=== PATIENT | male | born 1955 | race Caucasian/White ===

== ENCOUNTER → 2023-12-18 12:10 | Outpatient (REF) | payer OTHER, SELFPAY | LOC: PAVMRI 12:10 | PROVIDERS: ATTENDING PHYSICIAN Family Medicine | DX: D18.03 Hemangioma of intra-abdominal structures (principal) | CPT/HCPCS: 74183; A9575 ==

== ENCOUNTER → 2024-02-07 12:53 | Outpatient (REF) | payer OTHER, SELFPAY | LOC: RAD 12:53 | PROVIDERS: ATTENDING PHYSICIAN Specialist; FAMILY PHYSICIAN Family Medicine | DX: I10 Essential (primary) hypertension (principal) | CPT/HCPCS: 93975 ==

== ENCOUNTER → 2024-02-28 08:18 | Outpatient (REF) | payer OTHER, SELFPAY | LOC: RAD 08:18 | PROVIDERS: ATTENDING PHYSICIAN Specialist; FAMILY PHYSICIAN Family Medicine | DX: Z96.653 Presence of artificial knee joint, bilateral (principal) | CPT/HCPCS: 78315; A9503 ==

== ENCOUNTER 2024-04-13 10:56 | Inpatient (IN) | payer OTHER, SELFPAY ==
--- NOTE | 2024-03-11 08:07 | CM ---
Addendum entered by Hayley Dejesus 04/01/24 10:28:
Spoke again with patient. He has not yet watched the online education or scheduled outpatient PT; he was encouraged to do both of these hai.
Original Note:
Patient is scheduled for a R TK Revision on 04/13/24. Spoke with patient prior to surgery via telephone. Patient had B TKR at in 2016. Reintroduced role of Orthopedic Navigator. Patient reports that he lives with his in a two story home.
There are five steps to enter and patient has a first floor set up. He currently functions independently and uses a cane. He also has a rolling walker, raised toilet seat, shower seat and hip kit. He reports a distant history of having had VN
services. PCP is Dr. Lexi Barillas.
Discussed orthopedic program and post surgical plans. Reviewed anticipated length of stay and that goal is for him to return home at discharge. Also reviewed outpatient PT. Patient is in agreement with tentative plan and will go directly to
outpatient PT at [facility]. He will have support from his when he goes home.
Patient will complete online education.
Plan: Orthopedic Navigator will remain available to assist with the care of patient and will reassess discharge needs after surgery.
[2024-03-23 09:49] VITALS: BMI 38.1
[2024-03-23 10:11] LABS: Mean Corp Hgb Conc. 33.3 g/dL (33.0-37.0); Mean Corpuscular Volume 92.9 fL (80.0-94.0); Mean Platelet Volume 10.2 fL (7.4-10.4); Platelet Count 202 10^3/uL (130-400); Red Blood Cell Count 4.52 10^6/uL (4.70-6.10); Red Cell Dist. Width 13.9 % (11.5-14.5); White Blood Cell Count 7.2 10^3/uL (4.8-10.8)
[2024-03-23 10:42] LABS: ALT (SGPT) 26 U/L (0-50); AST (SGOT) 39 U/L (17-59); Albumin 4.3 g/dl (3.5-5.0); Alkaline Phosphatase 87 U/L (38-126); Blood Urea Nitrogen 20 mg/dl (9-20); Calcium 9.7 mg/dl (8.4-10.2); Carbon Dioxide 24 mmol/L (22-30); Chloride 105 mmol/L (98-107); Estimated Creatinine Clearance 120 ml/min; Glucose 115 mg/dl (70-99); Potassium 4.4 mmol/L (3.5-5.1); Sodium 137 mmol/L (135-145); Total Bilirubin 0.6 mg/dl (0.2-1.3); eGFR > 60.00
[2024-03-23 11:09] LABS: Glycohemoglobin (HgbA1c) 5.8 % (4.0-5.6)
[2024-04-13] VITALS (9 sets, daily range): BP systolic 141–164; BP diastolic 62–93; BMI 38.1
[2024-04-13] MEDS: NORMOSOL-R 1000 IV ×2 (11:10→17:05)
[2024-04-13] MEDS: TYLENOL 650 MG PO ×4 (11:19→23:22)
[2024-04-13] MEDS: CELEBREX 200 MG PO (11:53)
--- NOTE | 2024-04-13 13:09 | W.DS.TRANS ---
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
-
Discharge Instructions:
Sleep Apnea Risk High
Discharge Diagnosis/Procedures R TKA Revision Dr. Hernadez 04/13/24
Activity With Walker
Driving Restrictions No driving
Bathing Restrictions OK to Shower
Other Services PT
Instructions:
Stand-Alone Forms:
Changes to Home Medications: Yes
Discharge Medications:
DC Medications w/original date entered in [employer]
Prilosec 1 tab PO DAILY 10/17/18
atenolol 50 mg tablet 50 mg PO DAILY 04/06/24
doxazosin 4 mg tablet 4 mg PO QPM 04/06/24
hydralazine 50 mg tablet 150 mg PO DAILY 04/06/24
losartan 100 mg tablet 100 mg PO DAILY 04/06/24
Saccharomyces boulardii 250 mg capsule (Florastor) 250 mg PO BID #1 cap 04/13/24
acetaminophen 500 mg tablet (Tylenol Extra Strength) 1,000 mg (2 x 500 mg) PO QID ##0 04/13/24
aspirin 325 mg tablet 325 mg PO DAILY blood clot prevention #1 tab 04/13/24
cefadroxil 500 mg capsule 500 mg PO BID infection prevention #14 caps 04/13/24
celecoxib 200 mg capsule 200 mg PO DAILY anti-inflammatory #14 caps 04/13/24
docusate sodium 100 mg capsule (Colace) 100 mg PO BID stool softner #1 cap 04/13/24
magnesium hydroxide 400 mg/5 mL oral suspension (Milk of Magnesia) 30 ml PO HS PRN Constipation #1 mL 04/13/24
mupirocin 2 % topical ointment topical DIRECTED 04/13/24
ondansetron 4 mg disintegrating tablet 4 mg PO Q6H PRN n/v #20 tabs 04/13/24
oxycodone 5 mg tablet 5 mg PO Q6H PRN 1 tab moderate pain, 2 tabs severe pain #30 tabs 04/13/24
sennosides 8.6 mg tablet (Senokot) 17.2 mg (2 x 8.6 mg) PO BID laxative #2 tabs 04/13/24
Home Medication Changes
cefadroxil 500 mg capsule 500 mg PO BID infection prevention #14 caps 04/13/24�
celecoxib 200 mg capsule 200 mg PO DAILY anti-inflammatory #14 caps 04/13/24�
mupirocin 2 % topical ointment topical DIRECTED 04/13/24�
ondansetron 4 mg disintegrating tablet 4 mg PO Q6H PRN n/v #20 tabs 04/13/24�
oxycodone 5 mg tablet 5 mg PO Q6H PRN 1 tab moderate pain, 2 tabs severe pain #30 tabs 04/13/24�
Pending Results: No
[2024-04-13] MEDS: NEURONTIN 300 MG PO ×2 (16:49→22:01)
[2024-04-13] MEDS: ROXICODONE 5 MG PO (17:01)
--- NOTE | 2024-04-13 18:00 | PTCARENOTE ---
received pt from pacu into room 2114. pt AAOx3. pt denies pain. denies nausea. Neurovascular check intact, sensation intact, + pulses. jonathan bandage to right knee. pt has not voided. active bowel sounds. lung sounds clear on room air. see worklist for
full nursing assessment. pt updated on plan of care.
[2024-04-13] MEDS: CARDURA 4 MG PO (18:22)
[2024-04-13] MEDS: ASPIRIN 325 MG PO (18:22)
[2024-04-13] MEDS: DILAUDID 0.5 MG IV (18:29)
[2024-04-13] MEDS: DECADRON 4 MG PO (19:57)
[2024-04-13] MEDS: SENOKOT 17.2 MG PO (19:57)
[2024-04-13] MEDS: TORADOL 15 MG IV (19:57)
[2024-04-13] MEDS: COLACE 100 MG PO (19:57)
[2024-04-13] MEDS: ROXICODONE 10 MG PO (22:01)
[2024-04-13] MEDS: ANCEF 5 IV (22:01)
[2024-04-13] MEDS: BACTROBAN 2% OINTMENT 1 APPLIC NASAL (22:01)
[2024-04-14] MEDS: ROXICODONE 10 MG PO ×3 (03:53→15:05)
[2024-04-14] MEDS: TYLENOL PO (06:05)
[2024-04-14] MEDS: FLUSH (NSS) 1 FLUSH IV (06:35)
[2024-04-14] MEDS: ANCEF 5 IV (06:39)
[2024-04-14 07:50] VITALS: BP 167/86
--- NOTE | 2024-04-14 08:19 | CM ---
Reviewed chart and held rounds with PT, OT and nursing. Patient admitted as planned for R TK Revision. Met with patient at bedside. Confirmed information previously obtained for assessment. Also discussed discharge plans. The plan is for patient to
return home at discharge. He will have support from his when he goes home. Patient will go directly to outpatient PT and will go to [facility]. He has an appointment scheduled for Saturday, 04/15.
Patient has all needed DME.
He will use [facility] pharmacy if additional discharge prescriptions are needed.
[2024-04-14] MEDS: COZAAR 25 MG PO (08:28)
[2024-04-14] MEDS: SENOKOT 17.2 MG PO (08:28)
[2024-04-14] MEDS: CELEBREX 200 MG PO (08:29)
[2024-04-14] MEDS: COLACE 100 MG PO (08:30)
[2024-04-14] MEDS: TYLENOL 650 MG PO ×3 (08:30→15:04)
[2024-04-14] MEDS: TENORMIN 25 MG PO ×2 (08:30→11:26)
[2024-04-14] MEDS: NEURONTIN 300 MG PO ×2 (08:30→15:04)
[2024-04-14] MEDS: ASPIRIN 325 MG PO (08:30)
[2024-04-14] MEDS: BACTROBAN 2% OINTMENT 1 APPLIC NASAL (08:31)
[2024-04-14] MEDS: PROTONIX 40 MG PO (08:31)
[2024-04-14] MEDS: CARDURA 4 MG PO (08:31)
[2024-04-14] MEDS: DECADRON 4 MG PO (08:31)
[2024-04-14] MEDS: TORADOL 15 MG IV (08:31)
[2024-04-14 09:55] VITALS: BP 139/74; PULSE 77; O2SAT 97
--- NOTE | 2024-04-14 10:30 | W.PN.ORTHO ---
Today's Communication / Plan
-
d/c
Assessment
.
Distal Motor Intact: Yes
Dressing:
Clean, dry and intact.
Assessment:
Incisional drainage-Tranexamic acid po x1-light pressure dressing-Hgb stable w/ no hemodynamic compromise
Plan
.
Surgery / Date: Mechanical failure-s/p R TKA Revision Dr. Hernadez
DVT Prophylaxis: Aspirin
Activity:
Out of bed.
PT/OT
Discharge Plan: Home w/ Outpatient PT
Subjective
.
.:
Patient resting comfortably.
Vital Signs and Labs
.
Vital Signs and Labs:
Lab Results
03/23/24 09:41
03/23/24 09:41
Temp Pulse Resp BP Pulse Ox
98.1 F 67 22 167/86 94
04/14/24 07:50 04/14/24 07:50 04/14/24 07:50 04/14/24 07:50 04/14/24 07:50
Non-invasive Hgb result: 15.6
Physical Exam
-
HEENT: No pallor, cyanosis, or jaundice. Throat clear.
NECK: Supple. No JVD.
RESPIRATORY: Lungs clear to auscultation.
CVS: S1, S2 normal. RRR.� No murmur, rub or gallop.
ABDOMEN: Soft, non-tender. No distension. BS+/normal.
EXTREMITIES: strength equal, no calf pain with palpation-proximal incisional bleeding
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 No focal deficits. neurosurgical nurse grossly intact
[2024-04-14 10:37] VITALS: BP 148/69
[2024-04-14] MEDS: CYKLOKAPRON 1300 MG PO (10:54)
[2024-04-14 15:20] VITALS: BP 152/76
--- NOTE | 2024-04-14 15:48 | PTCARENOTE ---
Verbal order from Gianna CORDOVA to place discharge order for now. Verbal order placed.
--- NOTE | 2024-04-14 16:25 | W.PN.UPDATE ---
Update Note
Progress Note Update
Patient was reported to have continued bleeding through his bandages. Bandages removed showing continuous slow bleeding with knee motion at the most proximal aspect in between michelle. There were 2 other locations identified 1 approximately 2
inches distal from the initially identified bleeding area and 1 more towards the distal incision. The area was initially cleaned with peroxide, followed by Betadine application for 2 minutes and subsequent alcohol. Overall sick michelle were then
applied and bleeding was controlled with knee motion. The area was cleaned again with Betadine and alcohol and allowed to dry and a new Aquacel dressing was placed. Pressure dressing was recommended L at the bedside and will monitor to see if
there is any evidence of continued bleeding.
[2024-04-14 16:37] VITALS: BP 152/76
== END 2024-04-14 16:30 | disposition home or self-care (01) | DRG 467 ==
LOC: 2 SOUTH 10:56
PROVIDERS: ADMITTING PHYSICIAN Specialist; FAMILY PHYSICIAN Family Medicine
PROC: 0SRC0J9 Replacement of Right Knee Joint with Synthetic Substitute, Cemented, Open Approach (ICD-10-PCS; 2024-04-13)
PROC: 0SPC0JZ Removal of Synthetic Substitute from Right Knee Joint, Open Approach (ICD-10-PCS; 2024-04-13)
DX: T84.032A Mechanical loosening of internal right knee prosthetic joint, initial encounter (principal); Z68.41 Body mass index [BMI] 40.0-44.9, adult; E66.01 Morbid (severe) obesity due to excess calories; Y79.8 Miscellaneous orthopedic devices associated with adverse incidents, not elsewhere classified; I10 Essential (primary) hypertension; E78.5 Hyperlipidemia, unspecified
CPT/HCPCS: 36415; 73560; 80053; 83036; 85027; 86850; 86900; 86901; 87070; 93005; 97110; 97116; 97163; 97166; 97530; C1713; C1762; C1776

== ENCOUNTER → 2024-11-06 13:01 | Outpatient (REF) | payer OTHER, SELFPAY | LOC: PAVMRI 13:01 | PROVIDERS: ATTENDING PHYSICIAN Family Medicine | DX: M54.16 Radiculopathy, lumbar region (principal) | CPT/HCPCS: 72148 ==

== ENCOUNTER → 2024-11-27 07:41 | Outpatient (REF) | payer OTHER, SELFPAY | LOC: RAD 07:41 | PROVIDERS: ATTENDING PHYSICIAN Family Medicine | DX: I71.40 Abdominal aortic aneurysm, without rupture, unspecified (principal) | CPT/HCPCS: 76770 ==

== ENCOUNTER → 2024-12-25 09:57 | Outpatient (REF) | payer OTHER, SELFPAY | LOC: RAD 09:57 | PROVIDERS: ATTENDING PHYSICIAN Neurological Surgery; FAMILY PHYSICIAN Family Medicine | DX: M54.2 Cervicalgia (principal); M79.604 Pain in right leg; M79.605 Pain in left leg | CPT/HCPCS: 72040; 72072; 72100 ==

== ENCOUNTER → 2024-12-28 10:36 | Outpatient (REF) | payer OTHER, SELFPAY | LOC: EMG 10:36 | PROVIDERS: ATTENDING PHYSICIAN Nurse Practitioner Family; FAMILY PHYSICIAN Family Medicine | DX: M79.604 Pain in right leg (principal); M79.605 Pain in left leg; R20.0 Anesthesia of skin | CPT/HCPCS: 95886; 95911 ==

== ENCOUNTER → 2025-05-04 11:23 | Outpatient (REF) | payer OTHER, SELFPAY | LOC: RAD 11:23 | PROVIDERS: ATTENDING PHYSICIAN Nurse Practitioner Family; FAMILY PHYSICIAN Family Medicine | DX: Z98.1 Arthrodesis status (principal) | CPT/HCPCS: 72100 ==

== ENCOUNTER → 2025-09-02 10:31 | Outpatient (REF) | payer OTHER, SELFPAY | LOC: RAD 10:31 | PROVIDERS: ATTENDING PHYSICIAN Nurse Practitioner Family; FAMILY PHYSICIAN Family Medicine | DX: Z98.1 Arthrodesis status (principal) | CPT/HCPCS: 72100 ==